=== PATIENT | male | born 1995 | race Caucasian/White ===

== ENCOUNTER → 2021-08-21 08:22 | Outpatient (CLI) | payer OTHER, SELFPAY | PROVIDERS: Visit Provider Nurse Practitioner | DX: Z20.822 Contact with and (suspected) exposure to COVID-19 (principal) | CPT/HCPCS: C9803; U0003; U0005 ==

== ENCOUNTER 2021-11-01 11:43 | Emergency (ER) | payer SELFPAY ==
[2021-11-01 12:43] VITALS: BP 134/88; PULSE 97; RESP 18; TEMP 36.6; O2SAT 98; BMI 24.4
--- NOTE | 2021-11-01 13:15 | HMH.EDUTC ---
[facility] [place] Disposition Clinical Impression: Low back pain with sciatica Qualifiers: Chronicity: unspecified Back pain laterality: right Sciatica laterality: sciatica of right side Qualified Code(s): M54.41 - Lumbago with sciatica, right side Disposition: Home, Self-Care Condition on Discharge: Good Instructions: Sciatica, DI for Sciatica, DI for Back Pain With Sciatica Additional Instructions: Get a copy of your MRI with results to bring with your to your appointment on Friday You have an appointment on Friday with Pain Management for further treatment and evaluation Return if needed Straight to ER if any life threatening symptoms Do not take the Etodolac until about 10pm tonight due to the Toradol shot Start oral steriods tomorrow Prescriptions: Etodolac 200 mg PO Q8HP PRN #20 cap PRN Reason: Moderate Pain Transmission Status: Received by [facility] #[id number] methylPREDNISolone [Medrol 4mg tab] 4 mg PO DIRECTED #21 tab Transmission Status: Received by [facility] #[id number] methocarbamoL [Methocarbamol 500mg Tablet] 500 mg PO BID PRN #15 tab PRN Reason: Muscle Spasm Transmission Status: Received by [facility] #[id number] Referrals: Dot Sahni APRN [Advanced Practice Nurse] - 11/05/21 11:00 am (Make sure to get a copy of MRI to bring with you to your appointment) Provider,Referral, [Primary Care Provider] - As needed Time of Disposition: 14:05 Medical Decision Making - Roni Inquiry Pt receiving controlled substance: No Roni was queried for this patient: No Vital Signs: 11/01/21 12:43 11/01/21 14:01 Temperature 97.9 F 97.9 F Temperature Source Oral Pulse Rate 97 H Pulse Rate [Left] 97 H Respiratory Rate 18 18 Blood Pressure 134/88 Blood Pressure [Right Arm] 134/88 Blood Pressure Mean [Right Arm] 103 02 Sat by Pulse Oximetry 98 Orders (Tests/Meds): ED MEDICATIONS Discontinued Medications Generic Name Dose Route Start Last Admin Trade Name Freq PRN Reason Stop Dose Admin Ketorolac Tromethamine 60 mg 11/01/21 13:33 11/01/21 13:51 Ketorolac 60mg/2ml Vial IM 11/01/21 13:34 60 mg ONCE ONE Administration Methylprednisolone Sodium Succinate 125 mg 11/01/21 13:33 11/01/21 13:51 Methylprednisolone Sod Succ 125mg Vial IM 11/01/21 13:34 125 mg ONCE ONE Administration [facility] [place] HPI - General Stated complaint: back/leg pain, difficulty walking Time Seen by Provider: 11/01/21 13:15 Mode of Arrival: Ambulatory Source of Information: Patient Limitations: No Limitations Description of Symptoms (Recalled from Triage Doc. by RN): pt c/o sciatic pain. pt states he had a injury in 2011 that left him with a buldging disk. pt c/o R sided lower back pain that radiates shooting pain down his R leg. HEENT Symptoms (Recalled from RN notes): No Resp Symptoms (Recalled from RN notes): No Skin Symptoms (Recalled from RN notes): No MS Symptoms (Recalled from RN notes): Yes (lower back and R leg pain) Functional Status (Recalled from RN notes): wnl - History of Present Illness Provider Complaint: Patient states that he had an old back injury from 2011 States that he recently had MRI and they seen a buldging disk States that he thinks he may have Sciatica Pain is in right side of lower back that radiates down into right buttock area States that - Related Data Previous Rx's Medication Instructions Recorded Etodolac 200 mg PO Q8HP PRN #20 cap 11/01/21 methocarbamoL [Methocarbamol 500mg 500 mg PO BID PRN #15 tab 11/01/21 Tablet] methylPREDNISolone [Medrol 4mg 4 mg PO DIRECTED #21 tab 11/01/21 tab] Allergies Allergy/AdvReac Type Severity Reaction Status Date / Time No Known Allergies Allergy Verified 11/01/21 13:33 - Worker's Comp Is this a Worker's Comp case?: No [facility] History - Hepatitis A Screen Drug use history?: No High risk sexual behaviors?: No History of sexually transmitted infection?: No Currently employed?: No [employer]
[2021-11-01 14:01] VITALS: BP 134/88; PULSE 97; RESP 18; TEMP 36.6
== END 2021-11-01 14:14 | disposition home or self-care (01) ==
PROVIDERS: Emergency Provider Nurse Practitioner
DX: M54.41 Lumbago with sciatica, right side (principal)
CPT/HCPCS: 96372; 99202; G0463

== ENCOUNTER → 2021-11-05 10:52 | Outpatient (POV) | payer SELFPAY ==
[2021-11-05 11:23] VITALS: BP 149/91; PULSE 80; RESP 18; O2SAT 99; BMI 24.4
--- NOTE | 2021-11-05 11:38 | HMH.PMCON ---
Assessment and Plan (1) Piriformis muscle pain Status: Acute Category: Medical Code(s): M79.18 - Myalgia, other site (2) Lumbar radiculopathy Status: Acute Category: Medical Code(s): M54.16 - Radiculopathy, lumbar region (3) Lumbar disc herniation Status: Acute Category: Medical Code(s): M51.26 - Other intervertebral disc displacement, lumbar region - Assessment and plan all Dx Assessment and Plan for all problems:: Patient is currently taking methocarbamol, etodolac, and methyprednisolone. Patient's MRI from November 2020 is mostly unremarkable other than the disc herniation in L5-S1. We will refer the patient to physical therapy for treatment and evaluation. We will provide the patient methocarbamol 500mg twice a day PRN for 15 days. Patient is currently transitioning from another job so he does not have any insurance at the moment. Patient can find several resources online on low back stretches. We will follow-up with the patient in one month. Patient has been instructed to contact the clinic with any concerns before the next appointment. Dr. Acosta has reviewed this note and agrees with this plan of care. This note was dictated using voice recognition software and make contain errors or omissions. HPI - Data of Consult Patient: new to practice Consult date: 11/05/21 Requesting Physician: Dot Sahni APRN - Consult Narrative Reason for consult: back pain History of present illness: Mr. Tate is a 26 year old male who comes in here today as a new patient. Patient is referred by Kalyani Maldonado APRN for acute on chronic low back pain. 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 This has caused him tremendous pain then. Patient says that he has been dealing with this low back pain that normally radiates to his left leg for years now. He had an MRI in November 2020 where they found bulging discs in the L5-S1. Central canal and bilateral neural foramina are patent. Rests of the MRI is unremarkable. Then around 2020, patient says that he started working out again, but suddenly got sharp back pain that radiates to his right leg. Patient then went to a [facility] where they gave him methocarbamol, etodolac, and methylprednisone. Patient had significant relief from these. Patient is currently not on any scheduled medications. His kanika is [id number]. CC: Dot Sahni APRN [facility] History I have reviewed the patient's past medical history: Yes *Have you ever received a pneumonia vaccine?: No *Have you received a flu vaccine this season?: No - *Social History Smoking Status: Smoker, status unknown Alcohol Intake: former *Occupational Status:: unemployed *Travel in the last 8 weeks: None Family Hx:: No significant family history Review of Systems - Review of Systems General: No recent weight changes, no fever, no sleep disturbances Respiratory: No cough, no shortness of air, no recurring pulmonary infections Cardiovascular/peripheral vascular: No chest pain, no palpitations, no edema, no shortness of breath Gastrointestinal: No new onset incontinence, normal bowel movements reported Genitourinary: No new onset incontinence Musculoskeletal: low back pain that radiates to bilateral legs, worse on the left Psychiatric: [Normal mood/affect] Neurological: [Denies weakness in extremities], [denies balance issues] Meds Home Medications Medication Instructions Recorded Confirmed Type Etodolac 200 mg PO Q8HP PRN #20 cap 11/01/21 Rx methocarbamoL [Methocarbamol 500mg 500 mg PO BID PRN #15 tab 11/01/21 Rx Tablet] methylPREDNISolone [Medrol 4mg 4 mg PO DIRECTED #21 tab 11/01/21 Rx tab] Allergies Allergy/AdvReac Type Severity Reaction Status Date / Time No Known Allergies Allergy Verified 11/01/21 13:33 Objective Vital signs: Pulse Resp BP Pulse Ox 80 18 149/91 H 99 11/05/21 11:23 11/05/21 11:23
--- NOTE | 2021-11-06 08:09 | HMH.PMCON ---
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 Patient's MRI from November 2020 is mostly unremarkable other than the disc herniation in L5-S1. We will refer the patient to physical therapy for treatment and evaluation. We will provide the patient methocarbamol 500mg twice a day PRN for 15 days. Patient is currently transitioning from another job so he does not have any insurance at the moment. Patient can find several resources online on low back stretches. We will follow-up with the patient in one month. Patient has been instructed to contact the clinic with any concerns before the next appointment. Dr. Acosta has reviewed this note and agrees with this plan of care. This note was dictated using voice recognition software and make contain errors or omissions. HPI - Data of Consult Patient: new to practice Consult date: 11/05/21 Requesting Physician: Dot Sahni APRN - Consult Narrative History of present illness: - Consult Narrative Reason for consult: back pain History of present illness: Mr. Tate is a 26 year old male who comes in here today as a new patient. Patient is referred by Kalyani Maldonado APRN for acute on chronic low back pain. 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 This has caused him tremendous pain then. Patient says that he has been dealing with this low back pain that normally radiates to his left leg for years now. He had an MRI in November 2020 where they found bulging discs in the L5-S1. Central canal and bilateral neural foramina are patent. Rests of the MRI is unremarkable. Then around 2020, patient says that he started working out again, but suddenly got sharp back pain that radiates to his right leg. Patient then went to a [facility] where they gave him methocarbamol, etodolac, and methylprednisone. Patient had significant relief from these. Patient is currently not on any scheduled medications. His kanika is [id number]. CC: Dot Sahni APRN [facility] History I have reviewed the patient's past medical history: Yes *Have you ever received a pneumonia vaccine?: No *Have you received a flu vaccine this season?: No - *Social History Smoking Status: Smoker, status unknown Alcohol Intake: former *Occupational Status:: unemployed *Travel in the last 8 weeks: None Family Hx:: No significant family history Review of Systems - Review of Systems General: No recent weight changes, no fever, no sleep disturbances Respiratory: No cough, no shortness of air, no recurring pulmonary infections Cardiovascular/peripheral vascular: No chest pain, no palpitations, no edema, no shortness of breath Gastrointestinal: No new onset incontinence, normal bowel movements reported Genitourinary: No new onset incontinence Musculoskeletal: low back pain that radiates to bilateral legs, worse on the left Psychiatric: [Normal mood/affect] Neurological: [Denies weakness in extremities], [denies balance issues] Meds Home Medications Medication Instructions Recorded Confirmed Type Etodolac 200 mg PO Q8HP PRN #20 cap 11/01/21 Rx methocarbamoL [Methocarbamol 500mg 500 mg PO BID PRN #15 tab 11/01/21 Rx Tablet] methylPREDNISolone [Medrol 4mg 4 mg PO DIRECTED #21 tab 11/01/21 Rx tab] All
== END ==
PROVIDERS: Visit Provider Clinical Nurse Specialist Family Health
DX: M79.18 Myalgia, other site (principal); M54.16 Radiculopathy, lumbar region; M51.26 Other intervertebral disc displacement, lumbar region; M47.896 Other spondylosis, lumbar region
CPT/HCPCS: 99202; G0463

== ENCOUNTER 2023-04-15 23:45 | Emergency (ER) | payer OTHER, SELFPAY ==
[2023-04-15 23:46] VITALS: BP 142/89; PULSE 109; RESP 20; TEMP 36.8; O2SAT 95; BMI 25.0
--- NOTE | 2023-04-16 00:42 | PC.NURSE ---
in room talking with patient at this time.
[2023-04-16 00:46] VITALS: BP 134/74; PULSE 91; RESP 18; TEMP 36.8; O2SAT 95
--- NOTE | 2023-04-16 00:46 | HMH.EDEXTP ---
Discharge Plan Disposition Patient Disposition: Home, Self-Care Chief Complaint: Extremity Problem,Nontraumatic Referrals Follow up/Referrals: Provider,Referral, MD [Primary Care Provider] - See instructions Clinical Impressions Clinical Impression: Contusion of forearm, right, Abrasion forearm Instructions Patient Instructions: DI for Abrasion Discharge ED Provider: Sis (ED)Ethan Extremity Problem HPI General Chief complaint: Extremity Problem,Nontraumatic Stated complaint: W/C fell right arm Time Seen by Provider: 04/16/23 00:00 Mode of Arrival: Ambulatory Source of Information: Patient and Medical Record Limitations: No Limitations Description of Symptoms (Recalled from ER Triage Doc. 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 Abrasions to right posterior forearm. History of Present Illness HPI Narrative: fall with abrasion rt forearm MD Complaint: extremity pain Onset (ago): hour(s) Consistency: constant Location: right and upper extremity Associated symptoms: denies other symptoms Related Data Allergies Allergy/AdvReac Type Severity Reaction Status Date / Time No Known Allergies Allergy Verified 11/01/21 13:33 [facility] Disclaimer: The information contained in this section may have been updated after the patient was seen, as this information can be updated by other users. Social History Smoking Status: Never smoker alcohol intake: former current occupational status: unemployed Travel in the last 8 weeks: None ROS Obtained: Yes All systems reviewed & no additional complaints except as documented Physical Exam General General appearance: alert Head Head exam: normocephalic Eye Eye exam: Present PERRL and EOMI ENT ENT exam: Present mucous membranes moist Neck Neck exam: Present trachea midline Respiratory Respiratory exam: Absent respiratory distress Cardiovascular Cardiovascular exam: Present regular rate Extremities Exam Extremities exam: Present other (abrasions rt upper ext with intact rom ) Neurological Exam Neurological exam: Present alert, oriented X3 and CN II-XII intact Skin Skin exam: Present other (rt upper ext abrasions); Absent rash Medical Decision Making Medical Records Medical records reviewed: Yes I reviewed the patient's medical records. Roni Inquiry Pt receiving controlled substance: No Vital Signs: 04/15/23 23:46 Temperature 98.2 F Temperature Source Oral Pulse Rate [Left] 109 H Respiratory Rate 20 Blood Pressure [Left Arm] 142/89 H Blood Pressure Mean [Left Arm] 106 Blood Pressure Source [Left Arm] Automatic Cuff Blood Pressure Position [Left Arm] Sitting 02 Sat by Pulse Oximetry 95 Oxygen Delivery Method Room Air Medical Decision Narrative: workman comp form completed -abrasion rt forearm Critical Care Time Critical Care Time Critical Care Time: No Attestation: On 04/15/23, the high probability of a clinically significant, sudden or life threatening deterioration of the following system(s) required my full and direct attention, intervention and personal management. The time I documented below is in addition to time spent performing reported procedures but includes the following listed in this critical care notation.
== END 2023-04-16 00:54 | disposition home or self-care (01) ==
PROVIDERS: Emergency Provider Emergency Medicine
DX: S50.811A Abrasion of right forearm, initial encounter (principal); W19.XXXA Unspecified fall, initial encounter; Y35.91XA Legal intervention, means unspecified, law enforcement official injured, initial encounter
CPT/HCPCS: 99282; 99283

== ENCOUNTER 2023-04-19 03:55 | Emergency (ER) | payer OTHER, SELFPAY ==
[2023-04-19 04:05] VITALS: BP 131/92; PULSE 64; RESP 16; TEMP 37.2; O2SAT 98; BMI 25.0
[2023-04-19 06:00] VITALS: BP 122/83; PULSE 64; RESP 18; TEMP 36.7
--- NOTE | 2023-04-19 06:08 | HMH.EDLOEX ---
Discharge Plan Disposition Patient Disposition: Home, Self-Care Prescriptions Prescriptions: New meloxicam 15 mg tablet 15 mg PO DAILY Qty: 10 0RF Referrals Follow up/Referrals: Provider,Referral, [Primary Care Provider] - See instructions Clinical Impressions Clinical Impression: Injury of quadriceps muscle Instructions Patient Instructions: DI for Quadriceps Strain Discharge ED Provider: Sis (ED)Ethan Lower Extremity Injury HPI General Chief Complaint: Extremity Injury, Lower Stated Complaint: WC Injury left quad Time Seen by Provider: 04/19/23 06:00 Mode of Arrival: Ambulatory Source of Information: Patient and Medical Record Limitations: No Limitations Description of Symptoms (Recalled from ER Triage Doc. by RN): Patient arrives via private vehicle c c/o left quadracep muscle. 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 Patient states that the pain in his thigh is now making it difficult to bend his leg. History of Present Illness HPI Narrative: tender lt quad after pursuing suspect lawrence DURAN complaint: thigh injury Onset (ago): hour(s) Injury: Left: thigh Type of Injury: other (running ) Place: work Severity: moderate Exacerbating factors: movement and palpation Other symptoms: none Related Data Previous Rx's Medication Instructions Recorded meloxicam 15 mg tablet 15 mg PO DAILY #10 tabs 04/19/23 Allergies Allergy/AdvReac Type Severity Reaction Status Date / Time No Known Allergies Allergy Verified 11/01/21 13:33 [facility] Disclaimer: The information contained in this section may have been updated after the patient was seen, as this information can be updated by other users. Social History Smoking Status: Never smoker alcohol intake: former current occupational status: unemployed Travel in the last 8 weeks: None ROS Obtained: Yes All systems reviewed & no additional complaints except as documented Physical Exam General General appearance: alert Head Head exam: normocephalic Eye Eye exam: Present PERRL and EOMI ENT ENT exam: Present mucous membranes moist Neck Neck exam: Present trachea midline Respiratory Respiratory exam: Absent respiratory distress Cardiovascular Cardiovascular exam: Present regular rate Abdominal Exam Abdominal exam: Present soft Extremities Exam Extremities exam: Present other (tenderness lt ant thigh ) Neurological Exam Neurological exam: Present alert and CN II-XII intact; Absent motor sensory deficit Skin Skin exam: Absent rash Medical Decision Making Medical Records Medical records reviewed: Yes I reviewed the patient's medical records. Roni Inquiry Pt receiving controlled substance: No Vital Signs: 04/19/23 04:05 04/19/23 06:00 Temperature 99 F 98.1 F Temperature Source Oral Pulse Rate 64 Pulse Rate [Apical] 64 Respiratory Rate 16 18 Blood Pressure 122/83 Blood Pressure [Right Arm] 131/92 H Blood Pressure Mean [Right Arm] 105 Blood Pressure Source [Right Arm] Automatic Cuff Blood Pressure Position [Right Arm] Sitting 02 Sat by Pulse Oximetry 98 Oxygen Delivery Method Room Air Lab Data Lab results reviewed: Yes I reviewed the patient's lab results. Orders (Tests/Meds): ED MEDICATIONS Discontinued Medications Generic Name Dose Route Start Last Admin Trade Name Freq PRN Reason Stop Dose Admin Ketorolac Tromethamine 60 mg 04/19/23 04:16 04/19/23 04:25 Ketorolac 60mg/2ml Vial IM 04/19/23 04:17 60 mg ONCE ONE Administration Methylprednisolone Sodium Succinate 125 mg 04/19/23 04:16 04/19/23 04:26 Methylprednisolone Sod Succ 125mg Vial IV 04/19/23 04:17 125 mg ONCE ONE Administration Medical Decision Narrative: tender lt thigh consistent with mm injury Critical Care Time Critical Care Time Critical Care Time: No Attestation: On 04/19/23, the
== END 2023-04-19 06:17 | disposition home or self-care (01) ==
PROVIDERS: Emergency Provider Emergency Medicine
DX: S76.102A Unspecified injury of left quadriceps muscle, fascia and tendon, initial encounter (principal); Y93.02 Activity, running; Y35.91XA Legal intervention, means unspecified, law enforcement official injured, initial encounter
CPT/HCPCS: 96372; 96374; 99284

== ENCOUNTER 2023-06-01 02:31 | Emergency (ER) | payer OTHER, SELFPAY ==
[2023-06-01 02:40] VITALS: BP 124/84; PULSE 99; RESP 16; O2SAT 95; BMI 25.0
--- NOTE | 2023-06-01 02:50 | HMH.EDGENADL ---
Discharge Plan Disposition Patient Disposition: Home, Self-Care Condition: Good Prescriptions Prescriptions: No Action meloxicam 15 mg tablet 15 mg PO DAILY Qty: 10 0RF Activity Restrictions/Add. Instructions Additional Instructions/Restrictions: Please follow-up with your primary care provider. Please return to the emergency department if you develop any new or worsening symptoms or become concerned for your health. Please take Tylenol and ibuprofen as needed for pain. Please limit physical activity of the left lower extremity until symptoms improve. Please take Tylenol and ibuprofen as needed for pain. Please use rest, ice, elevation for symptom control. Clinical Impressions Clinical Impression: Strain of left quadriceps muscle Discharge ED Provider: Justen Liu General Adult HPI General Chief complaint: Extremity Injury, Lower Stated complaint: WC 06/01/23 0230 Injury left quad Time Seen by Provider: 06/01/23 02:40 Mode of Arrival: Ambulatory Source of Information: Patient Limitations: No Limitations Description of Symptoms (Recalled from ER Triage Doc. 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 pt c/o L upper thigh pain. pt states this has happened previously. pain is dull and achey at rest and sharp with movement. pain is a 6/10 History of Present Illness HPI narrative: 28-year-old male reportedly previously healthy presents with left quadriceps pain after injury while chasing down a suspect. 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 He reports that he strained his quadriceps muscle about a month ago, symptoms were improving but were exacerbated by the incident today. He reports that he tackled the suspected of the ground and had significant left anterior thigh pain thereafter. Patient is able to bear weight, straight leg raise intact. Pain is reproducible on exam with palpation of the quadriceps muscle. Related Data Previous Rx's Medication Instructions Recorded meloxicam 15 mg tablet 15 mg PO DAILY #10 tabs 04/19/23 Allergies Allergy/AdvReac Type Severity Reaction Status Date / Time No Known Allergies Allergy Verified 11/01/21 13:33 [facility] Disclaimer: The information contained in this section may have been updated after the patient was seen, as this information can be updated by other users. Social History Smoking Status: Never smoker alcohol intake: former current occupational status: unemployed Travel in the last 8 weeks: None ROS Obtained: Yes All systems reviewed & no additional complaints except as documented Physical Exam General General appearance: alert and in no apparent distress Head Head exam: atraumatic and normocephalic Eye Eye exam: Present normal appearance, PERRL and EOMI ENT ENT exam: Present normal oropharynx and normal external ear exam Neck Neck exam: Present normal inspection and full ROM Chest Chest inspection: Present normal inspection and symmetric chest wall rise; Absent tenderness Respiratory Respiratory exam: Present normal lung sounds bilaterally; Absent respiratory distress Cardiovascular Cardiovascular exam: Present regular rate and normal rhythm Abdominal Exam Abdominal exam: Present soft; Absent distention, tenderness or guarding Extremities Exam Extremities exam: Present normal inspection and other (Tenderness palpation of the left anterior thigh. Left knee without effusion or tenderness, no pain with range of motion of the knee, slight pain of the quadriceps muscle with straight leg raise, straight leg raise intact); Absent edema or joint swelling Back Exam Back exam: Present normal inspection; Absent tenderness Neurological Exam Neurological exam: Present alert and oriented X3; Absent motor sensory deficit Psychiatric Psychiatric exam: Present normal affect and normal mood Skin Skin exam: Present warm, dry and normal color Lymphatic Lymphatic Findings: no adenopathy Medical Decision Making Medical Rec
[2023-06-01 02:52] VITALS: BP 130/70; PULSE 77; RESP 19; TEMP 36.8; O2SAT 98
== END 2023-06-01 02:55 | disposition home or self-care (01) ==
LOC: ER 02:50
PROVIDERS: Emergency Provider Emergency Medicine
DX: S76.112A Strain of left quadriceps muscle, fascia and tendon, initial encounter (principal); Y35.811A Legal intervention involving manhandling, law enforcement official injured, initial encounter
CPT/HCPCS: 99283

== ENCOUNTER 2023-12-16 17:51 | Emergency (ER) | payer BC, SELFPAY ==
[2023-12-16 19:00] VITALS: BP 136/90; PULSE 71; RESP 19; TEMP 36.8; O2SAT 98; BMI 25.8
--- NOTE | 2023-12-16 19:14 | EXP.UTC ---
Discharge Plan Disposition Patient Disposition: Home, Self-Care Condition: Good Prescriptions Prescriptions: New methylprednisolone [Medrol (Lupillo)] 4 mg tablets,dose pack See Rx Instructions .Route .COMPLEX 6 Days Qty: 21 0RF Rx Instructions: taper pack; methocarbamol 500 mg tablet 500 mg PO TID Qty: 12 0RF etodolac 200 mg capsule 200 mg PO Q8H PRN (Reason: pain) Qty: 12 0RF Referrals Follow up/Referrals: Provider,Referral, MD [Primary Care Provider] - See instructions Activity Restrictions/Add. Instructions Additional Instructions/Restrictions: *Etodolac loan 8 hours with meal as needed for pain/inflammation *Remember you had a Toradol shot in the clinic today, which is similar to Motrin or anything for the next 10hrs *Not additional anti-inflammatory like Ibuprofin motrin, aleve, advil with the above amount of Etodolac You can still take Tylenol every 4 hours as needed if you need something else for pain *Muscle relaxer every 8 hours as needed for muscle spasms but remember, it WILL cause drowsiness You cannot take it and drive, operate machinery or care for small children. *Keep this area active, no movement leads to more stiffness, However take it easy and avoid heavy lifting pushing or pulling *Follow up with you family doctor if no improvement for further treatment Clinical Impressions Clinical Impression: Low back pain with sciatica Qualifiers: Chronicity: unspecified Back pain laterality: right Sciatica laterality: sciatica of right side Qualified Code(s): M54.41 - Lumbago with sciatica, right side Instructions Patient Instructions: DI for Sciatica, DI for Back Pain With Sciatica Discharge ED Provider: Kalyani Maldonado [facility] General Stated complaint: back pain Mode of Arrival: Ambulatory Source of Information: Patient Limitations: No Limitations Time Seen by Provider: 12/16/23 19:14 Description of Symptoms (Recalled from Triage Doc. by RN): PATIENT C/O TIGHTNESS IN RIGHT BUTTOCK WITH TINGLING THAT RADIATES DOWN RIGHT LEG X 1 WEEK HEENT Symptoms (Recalled from RN notes): No Resp Symptoms (Recalled from RN notes): No Skin Symptoms (Recalled from RN notes): No MS Symptoms (Recalled from RN notes): Yes Functional Status (Recalled from RN notes): WNL History of Present Illness Provider Complaint: Patient states that he has a hx of sciatica pain States he started about a week ago in his right buttock area that goes down into his right upper leg that hurts worse when he sits or lays on it States feels like it did last time he had sciatica and came in and got a couple shots for it Related Data Previous Rx's Medication Instructions Recorded etodolac 200 mg capsule 200 mg PO Q8H PRN pain #12 caps 12/16/23 methocarbamol 500 mg tablet 500 mg PO TID #12 tabs 12/16/23 methylprednisolone 4 mg tablets in See Rx Instructions .Route 12/16/23 a dose pack (Medrol (Lupillo)) .COMPLEX 6 days #21 tabs Allergies Allergy/AdvReac Type Severity Reaction Status Date / Time No Known Allergies Allergy Verified 11/01/21 13:33 Worker's Comp Is this a Worker's Comp case?: No [facility] Disclaimer: The information contained in this section may have been updated after the patient was seen, as this information can be updated by other users. Medical History (Updated 12/16/23 @ 19:26 by Kalyain Maldonado APRN) No significant past medical history Social History Smoking Status: Never smoker alcohol intake: former current occupational status: unemployed Travel in the last 8 weeks: None ROS Obtained: Yes All systems reviewed & no additional complaints except as documented and Yes Systems reviewed as appropriate & no additional complaints except as documented Constitutional Constitutional: Reports system reviewed and no additional complaints, except as documented and Reports as per HPI ENT Ears, Nose, Mouth, and Throat: Reports system reviewed and no additional complaints, except as documented and Reports as per HPI Cardiovascular Cardiovascular: Reports system reviewed and no additional complaints, except as documented and Reports as per HPI Gastrointestinal Gastrointestingal: Reports system reviewed and no additional complaints, except as documented and as per HPI Musculoskeletal Musculoskeletal: Reports system reviewed and no additional complaints, except as documented, Reports as per HPI and Reports other (pain in right buttock area going down into right upper leg) Physical Exam General General appearance: alert and in no apparent distress ENT ENT exam: Present mucous membranes moist Respiratory Respiratory exam: Present normal lung sounds bilaterally; Absent respiratory distress or wheezes Cardiovascular Cardiovascular exam: Present regular rate, normal rhythm and normal heart sounds Abdominal Exam Abdominal exam: Present soft and normal bowel sounds; Absent distention or tenderness Back Exam Back exam: Present tenderness and sciatic notch tenderness (R) Back 1 view image: 1. pain in right buttock area that radiates down into right upper leg worse with movement or sitting on that side hx of sciatica Denies numbness Denies known injury denies loss of control of bowel or bladder Neurological Exam Neurological exam: Present alert, oriented X3 and normal gait Medical Decision Making Roni Inquiry Pt receiving controlled substance: No Roni was queried for this patient: No Vital Signs: 12/16/23 19:00 Temperature 98.3 F Temperature Source Oral Pulse Rate [Left Brachial] 71 Respiratory Rate 19 Blood Pressure [Left Arm] 136/90 Blood Pressure Mean [Left Arm] 105 Blood Pressure Source [Left Arm] Automatic Cuff Blood Pressure Position [Left Arm] Sitting 02 Sat by Pulse Oximetry 98 Oxygen Delivery Method Room Air
[2023-12-16] MEDS: METHYLPREDNISOLONE SOD SUCC 125MG VIAL 125 MG IM (19:29)
[2023-12-16] MEDS: KETOROLAC 60MG/2ML VIAL 60 MG IM (19:29)
[2023-12-16 19:30] VITALS: BP 136/90; PULSE 71; RESP 19; TEMP 36.8; O2SAT 98
== END 2023-12-16 19:45 | disposition home or self-care (01) ==
PROVIDERS: Emergency Provider Nurse Practitioner
DX: M54.41 Lumbago with sciatica, right side (principal)
CPT/HCPCS: 96372; 99212; 99214; G0463

== ENCOUNTER 2024-03-24 16:00 | Outpatient (RCR) | payer BC, SELFPAY ==
--- NOTE | 2024-02-04 13:51 | HMH.PTOPEV ---
PT Outpatient Evaluation Rehab PT Outpatient Evaluation Start: 02/04/24 11:00 Freq: Status: Active Protocol: Document 02/04/24 11:00 ZAN (Rec: 02/04/24 13:51 ZAN [id number]) E-signed By Tracee Mai, PT Outpatient Therapy Subjective History Subjective History Pt is a 28 y/o male who reports acute on chronic low back pain with insidious onset in December. Pt reports he initially injured his low back while deadlifting in high school resulting in a buldging disc. Pt reports frequent flare ups of low back pain since with history of piriformis syndrome and sciatica diagnoses. Pt reports current symptoms of right sided low-back pain that refers into the right posterior hip. Pt denies LE symptoms, paresthesia or b/b dysfunction. Pt reports he started doing low back extension exercises at the gym to try to assist with onset of pain but this seemed to worsen it. Pt reports he went to the ED on 12/16 and received a lumbar injection which did not help much. Pt denies having recent imaging of the back. Pt also states he was prescribed Meloxicam, a muscle relaxer and a steroid pack. Pt states he has not seen much improvement in symptoms while taking these medications. Pt reports he has been going to the chiropractor 2x/week which provides temporary relief. Pt reports pain is aggravated by bending, laying on the right side, and prolonged sitting/ standing/walking. Pt also reports he notices pain with initial movements with the leg press, leg raises, and hamstring curls. Pt reports he is very active and goes to the gym 3-4x/week but has recently quit squatting and deadlifting due to LBP. Pt denies further comorbidities to report. 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 Chief Complaint Pain Symptom Type Ache,Throb,Sharp Symptoms Relieved By Rest/Positioning Symptoms Aggravated By Sitting,Standing,Bending/ Stooping,Physical Activity, Walking,Lifting Prior Functional Limitations None Current Functional Limitations Lifting,Driving,Sleeping, Standing,Sitting Symptom Description Constant but Variable Level of pain today (0-10) 1 Pain scale - at its best (0-10) 1 Pain scale - at its worst (0-10) 5 Lumbopelvic Eval Palapation tenderness bilateral lumbar spinal tenderness Yes: L3-L5, S1 buttock tenderness Yes: R piriformis , glute med/ min Lumbar/Sacral Palpation Findings Tenderness Lumbar/Sacral Palpation Overall Comment referred pain into R hip with CPA of L4-5 Accessory Movement L-spine Vertebrae Accessory Movements Central P/A [place] that Elicit Symptoms L3 right L4 right L5 right S1 right Range of Motion Lumbar Spine Active Flexion Range of 60 Motion (degrees) Lumbar Spine Active Extension Range of 26 Motion (degrees) Left Lumbar Spine Lateral Flexion Active 30 Range of Motion (degrees) Right Lumbar Spine Lateral Flexion 30 Active Range of Motion (degrees) Manual Muscle Test Bilateral Knee Extension Strength Grade 5 Normal Knee Flexion Strength Grade 5 Normal Hip Flexion Strength Grade 5 Normal Hip Abduction Strength Grade 4 Good Hip Adduction Strength Grade 5 Normal Hip External Rotation Strength Grade 4 Good Hip Extension Strength Grade 4 Good Ankle Dorsiflexion Strength Grade 5 Normal DTR Rt Patellar 2+ Lt Patellar 2+ Altered Sensation Bilateral Comment equal and intact to light touch sensation bilaterally Special Tests Hip Scouring (Quadrant) Test Negative Left,Negative Right Hip Jose D (GRACIELA) Test Negative Left,Negative Right Hip Piriformis Test Positive Right Sciatic Nerve Tension Test Negative Left,Negative Right Unilateral Straight Leg Raise (Lasegue) Negative Left,Negative Right Test Oswestry Index Section 1 Pain Intensity The pain comes and goes and is moderate Section 2 Personal Care (Washing,Dresing) change my way of washing or dressing in order to avoid pain Section 3 Lifting I can lift heavy weights, but it gives me extra pain Section 4 Walking I cannot walk more than one mile wihtout increasing pain Section 5 Sitting I can sit in my favorite chair for as long as I like Section 6 Standing I cannot stand more than 1/2 hour without increasing pain Section 7 Sleeping I get pain in bed, but it does not prevent me from sleeping well Section 8 Social Life My social life is normal but increases the degree of pain Section 9 Traveling I get some pain when traveling , but none of my usual forms of travel m Section 10 Changing Degreee of Pain My pain seems to be getting better, but improvement is slow Score and Risk Level Oswestry Sc 14 Oswestry Risk Level Mild Disability Outpatient Therapy Assessment Impairments Problems/Impairmments Palpation Tenderness,Impaired Range of Motion,Impaired Strength,Impaired Walking, Impaired Standing,Impaired Sitting,Impaired Lifting, Impaired Squatting,Impaired Bending,Impaired Recreational Activities,Impaired Work Activities,Subjective C/O Pain ,Impaired Self Care/Self Management Prognosis Rehab Potential Good Clinical Impression Consistent with Diagnosis Yes Consistent with LBP with referred pain Short Term Goals Number of Weeks 3 Increase Range of Motion Yes: Improve lumbar AROM flex to 70 Increase Strength Yes: Improve core strength to 4/5 to assist with function Improve Ability to Squat Yes: demonstrate proper mechanics to assist with ADLs/ work/gym Improve Self Care/Self Management Yes Patient to be Ind w/ HEP Yes Checkering Machine Adjuster Goals Number of Weeks 6 Increase Range of Motion Yes: Improve lumbar AROM flex to at least 80 Increase Strength Yes: Improve core/hip strength 4+-5/5 grossly to assist with function Restore Ability to Lift Objects to Waist Yes: demonstrate proper Level deadlift mechanics with 100# to assist with function/rec Return to Recreational Activities Yes Improve Oswestry Score Yes: Improve score to 10 or less to improve overall QOL Decrease Subjective C/O Pain Yes: Improve pain at worst to 2/10 or less to improve overall QOL Outpatient Therapy Plan of Care Treatment Plan May Include Therapeutic Exercise Including Home Yes Exercise Program Manual Therapy Techniques Yes Neuromuscular Re-education Yes Therapeutic Activities to Return to Yes Previous Functional/Work Level ADL/Self Care Education Yes Mechanical Traction Yes Dry Needling Yes Thermal Modalities Yes Electrical Stimulation Yes Ultrasound/Phonophoresis Yes Iontophoresis Yes Massage Yes Eval/Re-Eval Yes Frequency Times per week 2 Duration Number of Weeks 4-6 Addendums This patient is a candidate for social No or vocational rehab? Patient/Guardian verbally acknowledges Yes understanding of treatment program and consents to further treatment? Patient/Guardian verbally acknowledges Yes understanding of diagnosis, prognosis and goals for treatment? Eval Complexity PT Charges 39565 - Low Complexity Shoulder/Elbow Eval Shoulder Objective Measurements Elbow Objective Measurements PHYSICIAN CERTIFICATION: I certify the specified therapy services for Tomás Tate are required, authorized, and reviewed every 30 days.
--- NOTE | 2024-03-09 12:10 | HMH.RHREAS ---
Rehab Reassessment Rehab OP Re-assessment Start: 02/04/24 11:00 Freq: Status: Active Protocol: Document 03/09/24 10:58 STEFEun (Rec: 03/09/24 12:10 ZAN [id number]) E-signed By Tracee Mai, PT Oswestry Index Section 1 Pain Intensity The pain comes and goes and is moderate Section 2 Personal Care (Washing,Dresing) change my way of washing or dressing in order to avoid pain Section 3 Lifting I can lift heavy weights, but it gives me extra pain Section 4 Walking I have no pain when walking Section 5 Sitting Pain prevents me from sitting for more than one hour Section 6 Standing I cannot stand more than 1 hour without increasing pain Section 7 Sleeping I get pain in bed, but it does not prevent me from sleeping well Section 8 Social Life My social life is normal but increases the degree of pain Section 9 Traveling I get extra pain while traveling, but it does not compel me to seek al Section 10 Changing Degreee of Pain My pain fluctuates, but overall is definitely getting better Score and Risk Level Oswestry Sc 12 Oswestry Risk Level Mild Disability Rehab Re-assessment Subjective Subjective Pt reports he feels 80% improved since starting PT. Pt reports continued right deep gluteal pain rated 2/10 at worst within the past week. Pt reports pain is mostly aggravated by prolonged sitting, performing leg press/ bridges and walking on uneven terrain. Pt also reports he notices avoiding bending towards the right side to avoid exacerbating symptoms. 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 Objective Objective Notes Palpation: 1/4 TTP of L5-S1 and greater trochanter Lumbar AROM: 75 flex, ext 20, LLF 30, RLF 35 RLE strength: hip ext 4/5, hip abd 4+/5, knee flex 5/5, knee ext 5/5 Core strength: 4-/5 Assessment Progress Assessment Progressing as Expected Assessment Notes Pt has attended 5 PT sessions consisting of aerobic exercise , glute/core strengthening, LE stretching, motor control, manual therapy and modalities with good tolerance. Pt demonstrated improved pain severity, KELLY score, lumbar AROM and hip strength this date compared to the initial evaluation. Pt continues to demonstrate deficits in core/ hip extensor strength and fear -avoidance behavior with lifting/bending. Pt educated on importance of compliance with PT POC and HEP to assist with progress. Overall, the pt would continue to benefit from skilled PT to further improve pain severity, hip/ core strength, lifting mechanics and functional activity tolerance to assist with return to PLOF. Patient goals met ST/5 Goals Not Met core strength, HEP compliance, LTG Revised Goals n/a Plan Plan Continue inital POC Frequency of Therapy 2x/week Duration of therapy 4 more weeks Time and Billing Re-Eval Time 15 Re-Eval Billing Units 1 PHYSICIAN CERTIFICATION: I certify the specified therapy services for Tomás Tate are required, authorized, and reviewed every 30 days.
== END 2024-03-24 17:10 | disposition home or self-care (01) ==
LOC: PT 16:00
PROVIDERS: Visit Provider Family Medicine
DX: M54.41 Lumbago with sciatica, right side (principal); M47.816 Spondylosis without myelopathy or radiculopathy, lumbar region
CPT/HCPCS: 20560; 20561; 97010; 97014; 97110; 97112; 97140; 97163; 97164; 97530; G0283

== ENCOUNTER 2024-05-16 14:22 | Emergency (ER) | payer BC, SELFPAY ==
--- NOTE | 2024-05-16 14:29 | EXP.UTC ---
Discharge Plan Disposition Patient Disposition: Home, Self-Care Condition: Good Prescriptions Prescriptions: New triamcinolone acetonide 0.1 % cream 1 applic topical BID PRN (Reason: itching) Qty: 30 0RF cephalexin 500 mg capsule 500 mg PO QID Qty: 40 0RF mupirocin 2 % ointment 1 applic topical TID 7 Days Qty: 15 0RF Referrals Follow up/Referrals: Vini Crow MD [Primary Care Provider] - See instructions Activity Restrictions/Add. Instructions Additional Instructions/Restrictions: Keep the wounds clean and dry. Follow up with your regular doctor. GO TO THE ER FOR ANY WORSENING SYMPTOMS OR CONCERNS. Clinical Impressions Clinical Impression: Bullous impetigo Instructions Patient Instructions: DI for Impetigo Discharge ED Provider: Elder England [facility] General Stated complaint: rash all over body Time Seen by Provider: 05/16/24 14:29 History of Present Illness Provider Complaint: He states that he has had multiple crusted lesions that have developed on his left leg and right upper arm. Related Data Previous Rx's Medication Instructions Recorded cephalexin 500 mg capsule 500 mg PO QID #40 caps 05/16/24 mupirocin 2 % topical ointment 1 applic topical TID 7 days #15 05/16/24 grams triamcinolone acetonide 0.1 % 1 applic topical BID PRN itching 05/16/24 topical cream #30 grams Allergies Allergy/AdvReac Type Severity Reaction Status Date / Time No Known Allergies Allergy Verified 01/22/24 15:14 [facility] Disclaimer: The information contained in this section may have been updated after the patient was seen, as this information can be updated by other users. Medical History (Updated 05/16/24 @ 15:02 by Elder England APRN) Degenerative joint disease (DJD) of lumbar spine Lumbar disc herniation Lumbar radiculopathy Low back pain with sciatica Social History Smoking Status: Never smoker alcohol intake: former current occupational status: unemployed Travel in the last 8 weeks: None ROS Obtained: Yes All systems reviewed & no additional complaints except as documented Constitutional Constitutional: Denies chills and Denies fever(s) Eyes Eyes: Denies eye discharge ENT Ears, Nose, Mouth, and Throat: Denies dizziness, Denies otalgia and Denies sore throat Cardiovascular Cardiovascular: Denies chest pain Respiratory Respiratory: Denies shortness of breath, Denies chest congestion, Denies cough, Denies stridor and Denies wheezing Gastrointestinal Gastrointestingal: Denies nausea or vomiting Musculoskeletal Musculoskeletal: Reports system reviewed and no additional complaints, except as documented and Denies arthralgias Integumentary/Breasts Skin/Breast: Reports as per HPI Neurologic Neurologic: Denies dizziness and Denies paresthesias Allergic/Immunologic Allergic/Immunologic: Denies wheezing Physical Exam General General appearance: alert and in no apparent distress Head Head exam: atraumatic, normocephalic and normal inspection Eye Eye exam: Present normal appearance, PERRL and EOMI ENT ENT exam: Present normal exam, normal oropharynx, mucous membranes moist, TM's normal bilaterally and normal external ear exam Neck Neck exam: Present normal inspection, full ROM and trachea midline; Absent meningismus or lymphadenopathy Chest Chest inspection: Present normal inspection and symmetric chest wall rise; Absent tenderness Respiratory Respiratory exam: Present normal lung sounds bilaterally; Absent respiratory distress Cardiovascular Cardiovascular exam: Present regular rate and normal rhythm; Absent JVD Abdominal Exam Abdominal exam: Present soft and normal bowel sounds; Absent distention, tenderness or guarding Extremities Exam Extremities exam: Present normal inspection, full ROM and normal capillary refill; Absent calf tenderness Back Exam Back exam: Present normal inspection; Absent tenderness Neurological Exam Neurological exam: Present alert and oriented X3 Psychiatric Psychiatric exam: Present normal affect and normal mood Skin Skin exam: Present rash Lymphatic Lymphatic Findings: no adenopathy Medical Decision Making Medical Records Medical records reviewed: No I reviewed the patient's medical records. Roni Inquiry Pt receiving controlled substance: No
[2024-05-16 14:36] VITALS: BP 117/74; PULSE 92; RESP 18; TEMP 36.6; O2SAT 96; BMI 26.9
[2024-05-16 15:13] VITALS: BP 117/74; PULSE 92; RESP 18; TEMP 36.6; O2SAT 96
== END 2024-05-16 15:13 | disposition home or self-care (01) ==
PROVIDERS: Emergency Provider Nurse Practitioner Family; PCP Family Medicine
DX: L01.03 Bullous impetigo (principal)
CPT/HCPCS: 99212; 99214; G0463

== ENCOUNTER 2024-08-29 21:34 | Emergency (ER) | payer SELFPAY ==
[2024-08-29 21:34] VITALS: BP 140/98; PULSE 115; RESP 18; TEMP 36.8; O2SAT 99; BMI 37.0
[2024-08-29 21:39] VITALS: BMI 27.1
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
[2024-08-29 21:43] VITALS: BP 140/98; PULSE 111; O2SAT 95
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
[2024-08-29 22:00] VITALS: BP 133/90; PULSE 103; O2SAT 98
[2024-08-29 22:08] LABS: Chloride 105 mmol/L (98-107); Sodium 141 mmol/L (136-145)
[2024-08-29 22:09] LABS: Activated Partial Thrombo Time 24.1 seconds (22.8-30.6); INR 0.95 (0.9-1.1); Prothrombin Time 10.7 seconds (10.1-12.5)
[2024-08-29 22:10] LABS: Blood Urea Nitrogen 18 mg/dl (9-20); Creatinine Clearance Estimated 99 mL/min (50-200); Estimated Glomerular Filt Rate 60 ml/min (>60); GFR (African American) 72 ML/MIN (>60)
[2024-08-29 22:11] LABS: Alanine Aminotransferase 33 U/L (12-78); Albumin/Globulin Ratio 1.6 (1.1-1.8); Alkaline Phosphatase 54 U/L (38-126); Aspartate Amino Transferase 33 U/L (17-59); Basophils # 0.1 K/mm3 (0-0.2); Basophils % 1.4 % (0.1-2.0); Bilirubin,Total 0.7 mg/dl (0.2-1.3); Calcium 9.4 mg/dl (8.4-10.2); Carbon Dioxide 29 mmol/L (22.0-30.0); Eosinophils # 0.4 K/mm3 (0.0-0.4); Eosinophils % 5.7 % (0.1-12.0); Globulin 3.2 g/dL (1.3-3.2); Glucose 105 mg/dl (74-100); Hematocrit 44.6 % (42.0-52.0); Hemoglobin 15.5 g/dL (14.1-18.0); Lymphocytes # 1.7 K/mm3 (0.7-4.5); Lymphocytes % 26.3 % (10-50); Mean Corpuscular HGB Conc 34.7 g/dL (31.8-35.4); Mean Corpuscular Hemoglobin 30.7 pg (27.0-31.2); Mean Corpuscular Volume 88.5 fl (80-94); Mean Platelet Volume 6.9 fl (7.4-10.4); Monocytes # 0.6 K/mm3 (0.1-1.0); Monocytes % 8.6 % (1.7-9.3); Neutrophils # 3.7 K/mm3 (1.8-7.8); Neutrophils % 58.1 % (37.0-80.0); Platelet Count 345 K/mm3 (142-424); Red Blood Count 5.04 M/mm3 (4.60-6.20); Red Cell Distribution Width 12.7 % (11.5-17.5); Total Protein,Serum 8.2 g/dl (6.3-8.2); White Blood Count 6.4 K/mm3 (4.8-10.8)
[2024-08-29] MEDS: SODIUM CHLORIDE 0.9% 10ML FLUSH SYRINGE 10 ML IV (22:35)
[2024-08-29] MEDS: SODIUM CHLORIDE 0.9% 10ML SYR (RAD ONLY) 10 ML IV (22:35)
[2024-08-29] MEDS: IOPAMIDOL-370 (76%);100ML BOTTLE 80 ML IV (22:35)
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
[2024-08-29 22:46] VITALS: BP 145/94; PULSE 93; O2SAT 99
[2024-08-29 23:00] VITALS: BP 142/93; PULSE 98; O2SAT 99
[2024-08-29 23:28] VITALS: BP 142/93; PULSE 98; RESP 18; TEMP 36.8; O2SAT 99
[2024-08-30 00:02] LABS: Barbiturates Screen,Urine Negative ng/ml (<200)
[2024-08-30 00:03] LABS: Benzodiazepines Screen,Urine Negative ng/ml (<200)
[2024-08-30 00:04] LABS: Amphetamine/Metha Screen,Urine Negative ng/ml (<1000); Cannabinoid Screen,Urine Negative ng/ml (<50)
[2024-08-30 00:05] LABS: Cocaine Screen,Urine Negative ng/ml (<300)
[2024-08-30 00:06] LABS: Methadone Screen,Urine Negative ng/ml (<300); Opiate Screen,Urine Negative ng/ml (<300)
[2024-08-30 00:07] LABS: Phencyclidine Screen,Urine Negative ng/ml (<25)
[2024-08-30 00:22] LABS: HIV (1&2) Antibody Rapid NONREACTIVE (NONREACTIVE)
[2024-08-31 08:19] LABS: HCV Ab Non Reactive (Non Reactive)
== END 2024-08-29 23:43 | disposition home or self-care (01) ==
PROVIDERS: Emergency Provider Emergency Medicine
DX: S00.81XA Abrasion of other part of head, initial encounter (principal); S60.811A Abrasion of right wrist, initial encounter; M25.531 Pain in right wrist; V89.2XXA Person injured in unspecified motor-vehicle accident, traffic, initial encounter; Y93.89 Activity, other specified; Y92.89 Other specified places as the place of occurrence of the external cause
CPT/HCPCS: 70450; 71045; 71275; 72125; 72128; 72131; 74174; 80053; 80307; 85025; 85610; 85730; 86803; 87389; 99285; Q9967

== ENCOUNTER 2024-12-01 15:00 | Outpatient (RCR) | payer BC, SELFPAY ==
--- NOTE | 2024-11-04 20:11 | [facility].PTOPEV ---
PT Outpatient Evaluation Rehab PT Outpatient Evaluation Start: 11/04/24 19:42 Freq: Status: Active Protocol: Document 11/04/24 19:42 WENDIE (Rec: 11/04/24 20:10 WENDIE [id number]) E-signed By Christophe Pearson, PT Outpatient Therapy Subjective History Subjective History Patient is a 29 year old male presenting to outpatient PT with reports of chronic LS pain with RLE radicular symptoms starting approx 8 years ago. Symptoms of insidious onset starting approx 8 years ago with most recent exacerbation starting approx 2 months ago. Patient reports most recent imaging indicates multiple disc bulges , though no reports on file. No other comorbidities to report. Chief Complaint Pain,Stiff,Paresthesia Symptom Type Ache,Throb,Sharp Symptoms Relieved By Rest/Positioning Symptoms Aggravated By Sitting,Standing,Bending/ Stooping,Physical Activity, Walking,Lifting Prior Functional Limitations None Current Functional Limitations Lifting,Housework,Desk Work/ Reading,Driving,Sleeping, Standing,Sitting,Recreation Activity,Walking,Bending/ Stooping Symptom Description Constant but Variable Level of pain today (0-10) 5 Pain scale - at its best (0-10) 3 Pain scale - at its worst (0-10) 6 Lumbopelvic Eval Posture Thoracic Spine Posture Standing Position Increased Kyphosis Lumbar Spine Posture Standing Position Decreased Lordosis Palapation tenderness right Lumbar/Sacral Palpation Findings Tenderness Lumbar/Sacral Palpation Overall Comment R SIJ/greater throchanter 3/4 Accessory Movement S1 right Range of Motion Lumbar Spine Active Flexion Range of 68 Motion (degrees) Lumbar Spine Active Extension Range of 11 Motion (degrees) Left Lumbar Spine Lateral Flexion Active 17 Range of Motion (degrees) Right Lumbar Spine Lateral Flexion 19 Active Range of Motion (degrees) Lumbar Spine ROM Limitations Soft Tissue Tightness Manual Muscle Test Bilateral Knee Extension Strength Grade 5 Normal Knee Flexion Strength Grade 5 Normal Hip Flexion Strength Grade 5 Normal Extensor Hallucis Longus Strength Grade 5 Normal Ankle Dorsiflexion Strength Grade 5 Normal Gastronemius/Soleus Strength Grade 5 Normal Altered Sensation Right LE Dermatome Level L5,S1 Comment Intermittent shooting pain. Special Tests Hip Lizzie Test Positive Left,Positive Right Hip Piriformis Test Positive Left,Positive Right Hip Bowstring (Cram) Test Positive Left,Positive Right Sciatic Nerve Tension Test Negative Left,Positive Left Minor Test Positive Sacroiliac Joint Compression Test Negative Left,Negative Right Sacroiliac Joint Distraction Test Negative Left,Negative Right Lumbar Long [place] Distraction Test/Manual Positive Traction Oswestry Index Section 1 Pain Intensity The pain comes and goes and is moderate Section 2 Personal Care (Washing,Dresing) my way of washing or dressing even though it causes some pain Section 3 Lifting lifting heavy weights off the floor, but I can manage light to medium Section 4 Walking I cannot walk more than 1/2 mile without increasing pain Section 5 Sitting Pain prevents me from sitting for more than 1/2 hour Section 6 Standing I cannot stand more than 1/2 hour without increasing pain Section 7 Sleeping I get pain in bed, but it does not prevent me from sleeping well Section 8 Social Life Pain has restricted my social life to my home Section 9 Traveling I get extra pain while traveling, but it does not compel me to seek al Section 10 Changing Degreee of Pain My pain is neither getting better or worse Score and Risk Level Oswestry Sc 26 Oswestry Risk Level Severe Disability Outpatient Therapy Assessment Impairments Problems/Impairmments Palpation Tenderness,Impaired Range of Motion,Impaired Strength,Impaired Walking, Impaired Standing,Impaired Sitting,Impaired Driving, Impaired Household Care, Impaired Recreational Activities,Impaired Work Activities,Impaired Desk/ Computer Activities,Subjective C/O Pain Prognosis Rehab Potential Good Clinical Impression Consistent with Diagnosis Yes Consistent with Possible L upslip of the innominant Short Term Goals Number of Weeks 2 Decrease Subjective C/O Pain Yes: 02/10 at worst 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 Number of Weeks 4-6 Decreased Palpation Tenderness Yes: 1/ Increase Range of Motion Yes: WNL Increase Ability to Walk Yes: 30 min without difficulty Increase Ability to Stand Yes Improve Ability For Household Care Yes Return to Recreational Activities Yes Improve Tolerance to Work Activities Yes Improve Oswestry Score Yes: mild disability Decrease Subjective C/O Pain Yes: 2/10 at worst Outpatient Therapy Plan of Care Treatment Plan May Include Therapeutic Exercise Including Home Yes Exercise Program Manual Therapy Techniques Yes Neuromuscular Re-education Yes Therapeutic Activities to Return to Yes Previous Functional/Work Level Gait Training Yes ADL/Self Care Education Yes Mechanical Traction Yes Dry Needling Yes Thermal Modalities Yes Electrical Stimulation Yes Ultrasound/Phonophoresis Yes Iontophoresis Yes Orthotics/Bracing/Splinting Yes Eval/Re-Eval Yes Frequency Times per week 2-3 Duration Number of Weeks 4-6 Addendums This patient is a candidate for social No or vocational rehab? Patient/Guardian verbally acknowledges Yes understanding of treatment program and consents to further treatment? Patient/Guardian verbally acknowledges Yes understanding of diagnosis, prognosis and goals for treatment? Eval Complexity PT Charges 08279 - Moderate Complexity Shoulder/Elbow Eval Shoulder Objective Measurements Elbow Objective Measurements PHYSICIAN CERTIFICATION: I certify the specified therapy services for Tomás Tate are required, authorized, and reviewed every 30 days.
== END 2024-12-01 23:59 | disposition home or self-care (01) ==
LOC: PT 15:00
PROVIDERS: Visit Provider Nurse Practitioner Family
DX: M54.41 Lumbago with sciatica, right side (principal); M54.16 Radiculopathy, lumbar region
CPT/HCPCS: 20561; 97014; 97110; 97163; 97530; G0283

== ENCOUNTER 2024-12-16 15:00 | Outpatient (RCR) | payer BC, SELFPAY | END 2024-12-16 23:59 | disposition home or self-care (01) | LOC: PT 15:00 | PROVIDERS: Visit Provider Nurse Practitioner Family | DX: M54.16 Radiculopathy, lumbar region (principal); M54.41 Lumbago with sciatica, right side | CPT/HCPCS: 20561; 97014; 97110; G0283 ==

== ENCOUNTER 2025-02-25 00:37 | Emergency (ER) | payer OTHER, SELFPAY ==
[2025-02-25 00:45] VITALS: BP 167/90; PULSE 96; RESP 18; TEMP 36.7; O2SAT 97; BMI 25.0
--- NOTE | 2025-02-25 00:47 | HMH.EDGENADL ---
Discharge Plan Disposition Patient Disposition: Home, Self-Care Condition: Good Prescriptions Prescriptions: New amoxicillin-pot clavulanate 875-125 mg tablet 1 tab PO BID 5 Days Qty: 10 0RF No Action ketoconazole 2 % cream 1 applic topical BID Qty: 30 0RF desvenlafaxine succinate [Pristiq] 100 mg tablet extended release 24 hr 100 mg PO DAILY Qty: 30 2RF Referrals Follow up/Referrals: Vini Crow MD [Primary Care Provider] - See instructions Activity Restrictions/Add. Instructions Additional Instructions/Restrictions: Please follow-up with your primary care provider. Please return to the emergency department if you develop any new or worsening symptoms or become concerned for your health. Please take antibiotics as prescribed for prophylaxis of infection. Clinical Impressions Clinical Impression: Dog bite Qualifiers: Encounter type: initial encounter Qualified Code(s): W54.0XXA - Bitten by dog, initial encounter Instructions Patient Instructions: Animal Bites Print Language Print Language: Nepali Discharge ED Provider: Justen Liu Adult [facility] General Chief complaint: Animal Bite Stated complaint: dog bite Time Seen by Provider: 02/25/25 00:40 Mode of Arrival: Ambulatory Source of Information: Patient Description of Symptoms (Recalled from ER Triage Doc. by RN): patient was bitten by a dog on the back of his left knee History of Present Illness HPI narrative: 29-year-old male without significant past medical history presents for dog bite to the back of his left knee. No significant bleeding. No palpable foreign body. 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 Reports pain. Has normal range of motion. Related Data Previous Rx's ?Medication ?Instructions ?Recorded ketoconazole 2 % topical cream 1 applic topical BID #30 grams 10/14/24 desvenlafaxine succinate 100 mg 100 mg PO DAILY #30 tabs 01/28/25 tablet,extended release 24 hr (Pristiq) amoxicillin 875 mg-potassium 1 tab PO BID 5 days #10 tabs 02/25/25 clavulanate 125 mg tablet Allergies Allergy/AdvReac Type Severity Reaction Status Date / Time No Known Allergies Allergy Verified 01/12/25 13:40 [facility] Disclaimer: The information contained in this section may have been updated after the patient was seen, as this information can be updated by other users. Medical History CRISTAL (acute kidney injury) Anxiety Depression Degenerative joint disease (DJD) of lumbar spine Lumbar disc herniation Lumbar radiculopathy Low back pain with sciatica Surgical History No pertinent past surgical history Family History Family/Other No significant family history Social History Smoking Status: Never smoker alcohol intake: former current occupational status: unemployed Travel in the last 8 weeks: None Other Medical History Have you received the Flu Vaccine for this season: No Have you received the Pneumonia Vaccine: No ROS Obtained: Yes All systems reviewed & no additional complaints except as documented Physical Exam General General appearance: alert and in no apparent distress Head Head exam: atraumatic and normocephalic Eye Eye exam: Present normal appearance, PERRL and EOMI ENT ENT exam: Present normal oropharynx and normal external ear exam Neck Neck exam: Present normal inspection and full ROM Chest Chest inspection: Present normal inspection and symmetric chest wall rise; Absent tenderness Respiratory Respiratory exam: Present normal lung sounds bilaterally; Absent respiratory distress Cardiovascular Cardiovascular exam: Present regular rate and normal rhythm Abdominal Exam Abdominal exam: Present soft; Absent distention, tenderness or guarding Extremities Exam Extremities exam: Present other (Multiple puncture wounds to the popliteal region of the left leg); Absent edema or joint swelling Back Exam Back exam: Present normal inspection; Absent tenderness Neurological Exam Neurological exam: Present alert and oriented X3; Absent motor sensory deficit Psychiatric Psychiatric exam: Present normal affect and normal mood Skin Skin exam: Present warm, dry and normal color Lymphatic Lymphatic Findings: no adenopathy Medical Decision Making Medical Records Medical records reviewed: Yes I reviewed the patient's medical records. Screening: Per USPSTF and CDC recommendations, given the prevalence of disease in our region, it is our hospital?s policy to screen for HIV and viral Hepatitis for all patients aged 18 and over and those with ongoing risk factors. Roni Inquiry Pt receiving controlled substance: No Roni was queried for this patient: No Vital Signs: 02/25/25 00:45 02/25/25 01:01 Temperature 98.1 F 98.1 F Temperature Source Oral Oral Pulse Rate 89 Pulse Rate [Right] 96 H Respiratory Rate 18 18 Blood Pressure 168/88 H Blood Pressure [Right Arm] 167/90 H Blood Pressure Mean [Right Arm] 115 Blood Pressure Source Automatic Cuff Blood Pressure Source [Right Arm] Automatic Cuff Blood Pressure Position Sitting 02 Sat by Pulse Oximetry 97 Oxygen Delivery Method Room Air Room Air Lab Data Lab results reviewed: Yes I reviewed the patient's lab results. Orders (Tests/Meds): ED MEDICATIONS Discontinued Medications Generic Name Dose Route Start Last Admin Trade Name Buffy PRN Reason Stop Dose Admin Amoxicillin/Clavulanate Potassium 1 each 02/25/25 00:48 02/25/25 00:52 Amoxicillin/Clavulanate Potassium 875/125mg Tablet PO 02/25/25 00:49 1 each ONCE ONE Administration Tetanus/Reduced Diphtheria/Acell Pertussis 0.5 ml 02/25/25 00:48 02/25/25 00:52 Tet/Diphth/Pert-Adult 0.5ml Syringe IM 02/25/25 00:49 0.5 ml .ONCE ONE Administration Medical Decision Narrative: 29-year-old male without significant past medical history presents for dog bite to the left leg. Hemostatic on arrival.. History was obtained via interactive discussion with patient. On arrival, patient is [afebrile, hemodynamically stable, satting appropriately, alert, oriented x4, GCS 15], moving all extremities spontaneously. Full physical exam performed and significant for puncture wounds to the left popliteal fossa Differential includes but is not limited to dog bite, foreign body, laceration, tetanus exposure. Patient was given Tdap and Augmentin. Wound was cleaned. No indication for suture repair. Discharged in stable condition with prescription for Augmentin for antibiotic prophylaxis of dog bite. Procedures Risk/Benefits of Procedure(s) Were Explained: Yes Critical Care Critical Care Time Critical Care Time: No
[2025-02-25] MEDS: AMOXICILLIN/CLAVULANATE POTASSIUM 875/125MG TABLET 1 EACH PO (00:52)
[2025-02-25] MEDS: TET/DIPHTH/PERT-ADULT 0.5ML SYRINGE 0.5 ML IM (00:52)
[2025-02-25 01:01] VITALS: BP 168/88; PULSE 89; RESP 18; TEMP 36.7; O2SAT 100
== END 2025-02-25 01:02 | disposition home or self-care (01) ==
PROVIDERS: Emergency Provider Emergency Medicine; PCP Family Medicine
DX: S81.052A Open bite, left knee, initial encounter (principal); W54.0XXA Bitten by dog, initial encounter; Z23 Encounter for immunization
CPT/HCPCS: 90471; 90715; 99283

== ENCOUNTER 2025-04-28 16:00 | Outpatient (RCR) | payer BC, SELFPAY ==
--- NOTE | 2025-04-06 17:03 | HMH.PTOPEV ---
PT Outpatient Evaluation Rehab PT Outpatient Evaluation Start: 04/06/25 15:55 Freq: Status: Active Protocol: Document 04/06/25 15:55 NARCISOANJELICA (Rec: 04/06/25 17:03 ZAN [id number]) E-signed By Tracee Mai, PT Outpatient Therapy Subjective History Subjective History Pt is a 30 y/o male who reports chronic R sided low back pain for ~1 year that radiates into the right buttocks region. Pt denies more distal LE symptoms, paresthesia or b/b dysfunction. Pt does report his right leg often shakes' and feels weak. Pt denies having recent imaging of his lumbar spine but reports previously he was told he has a bulging disc at L5. Pt reports he has had PT in the past with symptoms steadily improved but not abolished with dry needling. Pt reports pain continues to be aggravated by doing leg day at the gym, heavy lifting, prolonged sitting especially with his duty belt on, stair/incline climbing and bending forward. Pt reports he is still going to the gym but has not been running or doing leg day yet. Pt reports he is very cautious with bending forward and squats instead of bending at the waist to avoid R sided back/leg tightness. Pt denies further comorbidities to report. 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 Chief Complaint Pain Symptom Type Ache,Dull Symptoms Relieved By Rest/Positioning Current Functional Lifting,Standing,Squatting,Recreation Activity,Walking, Limitations Stairs Symptom Description Constant but Variable Pain scale - at its 3 best (0-10) Pain scale - at its 8 worst (0-10) Lumbopelvic Eval Posture Lumbar Spine Posture Increased Lordosis Standing Position Assistive device Assistive Devices None / NA Gait Observation General Gait Pattern No Deviations/Normal Observation Palapation tenderness right lumbar spinal Yes: L4-5, L5-S1 tenderness buttock tenderness Yes: piriformis, glute med/min, TFL Lumbar/Sacral Tenderness Palpation Findings Lumbar/Sacral 2/4 TTP Palpation Overall Comment Accessory Movement L-spine Vertebrae Central P/A [place] Accessory Movements that Elicit Symptoms L4 bilateral L5 bilateral S1 bilateral Range of Motion Lumbar Spine Active 70 Flexion Range of Motion (degrees) Lumbar Spine Active 15 Extension Range of Motion (degrees) Left Lumbar Spine 20 Lateral Flexion Active Range of Motion (degrees) Right Lumbar Spine 20 Lateral Flexion Active Range of Motion (degrees) Manual Muscle Test Right Knee Extension 4- Good- Strength Grade Knee Flexion 5 Normal Strength Grade Hip Flexion Strength 5 Normal Grade Hip Abduction 4+ Good+ Strength Grade Hip Adduction 4+ Good+ Strength Grade Hip Extension 4 Good Strength Grade Ankle Dorsiflexion 5 Normal Strength Grade DTR Rt Patellar 2+ Lt Patellar 2+ Rt Gastroc/Soleus 2+ Lt Gastroc/Soleus 2+ Altered Sensation Bilateral Comment equal and intact to light touch sensation bilaterally Special Tests Sciatic Nerve Positive Right Tension Test Unilateral Straight Positive Right Leg Raise (Lasegue) Test Oswestry Index Section 1 Pain Intensity The pain is mild and does not vary much Section 2 Personal Care ( my way of washing or dressing even though it causes Washing,Dresing) some pain Section 3 Lifting lifting heavy weights off the floor, but I can manage if they are Section 4 Walking I have some pain when walking but it does not increase with distance Section 5 Sitting Pain prevents me from sitting for more than one hour Section 6 Standing I cannot stand more than 1/2 hour without increasing pain Section 7 Sleeping I get pain in bed, but it does not prevent me from sleeping well Section 8 Social Life Pain has no significant effect on my social life apart from limiting Section 9 Traveling I get no pain when traveling Section 10 Changing Degreee of My pain seems to be getting better, but improvement is Pain slow Score and Risk Level Oswestry Sc 16 Oswestry Risk Level Moderate Disability Outpatient Therapy Assessment Impairments Problems/ Palpation Tenderness,Impaired Range of Motion,Impaired Impairmments Strength,Impaired Walking,Impaired Standing,Impaired Sitting,Impaired Lifting,Impaired Stair Climbing, Impaired Incline Stepping,Impaired Squatting,Impaired Recreational Activities,Impaired Running,Impaired Work Activities,Subjective C/O Pain,Impaired Self Care/Self Management Prognosis Rehab Potential Good Clinical Impression Consistent with Yes Diagnosis Short Term Goals Number of Weeks 3 Decrease Subjective Yes: Improve pain at worst to 6/10 to improve overall C/O Pain QOL Improve Self Care/ Yes Self Management Patient to be Ind w/ Yes HEP Halfway Goals Number of Weeks 6 Decreased Palpation Yes: 0-1/4 TTP of L4-5, L5-S1 Tenderness Increase Range of Yes: Improve lumbar AROM flexion to 90, ext to 20 Motion Increase Strength Yes: Improve hip/core strength to 5/5 grossly to assist with function Improve Ability to Yes: with pain 4/10 or less Bend Return to Yes: return to running/weight lifting with noonan 4/10 or Recreational less Activities Improve Tolerance to Yes: report ability to sit 30' with duty belt on p! 4/ Work Activities 10 or less Improve Oswestry Yes: Improve score to 11 or less to improve overall QOL Score Decrease Subjective Yes: Improve pain at worst to 4/10 to improve overall C/O Pain QOL Outpatient Therapy Plan of Care Treatment Plan May Include Therapeutic Exercise Yes Including Home Exercise Program Manual Therapy Yes Techniques Neuromuscular Re- Yes education Therapeutic Yes Activities to Return to Previous Functional/Work Level ADL/Self Care Yes Education Mechanical Traction Yes Dry Needling Yes Thermal Modalities Yes Electrical Yes Stimulation Ultrasound/ Yes Phonophoresis Iontophoresis Yes Massage Yes Eval/Re-Eval Yes Frequency Times per week 2 Duration Number of Weeks 4-6 Addendums This patient is a No candidate for social or vocational rehab ? Patient/Guardian Yes verbally acknowledges understanding of treatment program and consents to further treatment? Patient/Guardian Yes verbally acknowledges understanding of diagnosis, prognosis and goals for treatment? Eval Complexity PT Charges 19560 - Low Complexity Shoulder/Elbow Eval Shoulder Objective Measurements Elbow Objective Measurements PHYSICIAN CERTIFICATION: I certify the specified therapy services for Tomás Tate are required, authorized, and reviewed every 30 days.
== END 2025-04-28 23:59 | disposition home or self-care (01) ==
LOC: PT 16:00
PROVIDERS: Visit Provider Nurse Practitioner Family
DX: M54.51 Vertebrogenic low back pain (principal); M54.16 Radiculopathy, lumbar region
CPT/HCPCS: 20560; 20561; 97014; 97110; 97140; 97161; G0283

== ENCOUNTER 2025-06-21 13:53 | Outpatient (RCR) | payer BC, SELFPAY ==
--- NOTE | 2025-06-21 15:11 | HMH.PTOPEV ---
PT Outpatient Evaluation Rehab PT Outpatient Evaluation Start: 06/21/25 13:59 Freq: Status: Active Protocol: Document 06/21/25 14:00 ZAN (Rec: 06/21/25 15:11 ZAN [id number]) E-signed By Tracee Mai, PT Outpatient Therapy Subjective History Subjective History Pt is a 30 y/o male who reports chronic R sided low back pain for >1 year. Pt reports noted improvement in symptoms with a bout of PT 2 months ago although was unable to finish his plan of care due to scheduling issues. Pt reports history of radiating pain into the right buttocks which has since resolved with current symptoms of right sided low back pain only described as tension. Pt denies paresthesia, radiating pain or b/ b dysfunction. Pt reports his right leg previously felt weak but no longer does. Pt reports continued compliance with his home exercise program which he states continues to help with pain. Pt reports he made modifications at work including moving heavy items from his duty belt from the back to the side and he has also ordered a vest to place heavier items in. Pt states he has since returned to lifting legs at the gym without noted pain; however, is fearful of progressing to quickly and reinjuring his back. Pt reports he is also still very cautious with bending and lifting. Pt denies further comorbidities to report. 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 Chief Complaint Pain Symptom Type Ache,Dull,Other Current Functional Squatting,Recreation Activity Limitations Symptom Description Intermittent Level of pain today 0 (0-10) Pain scale - at its 0 best (0-10) Pain scale - at its 1 worst (0-10) Lumbopelvic Eval Posture Lumbar Spine Posture Increased Lordosis Standing Position Assistive device Assistive Devices None / NA Palapation tenderness bilateral lumbar spinal Yes: L4, L5, S1 tenderness paraspinal Yes: R lumbar PS tenderness buttock tenderness Yes: R glute med/min Lumbar/Sacral Tenderness Palpation Findings Lumbar/Sacral 1-2/4 TTP Palpation Overall Comment Accessory Movement L-spine Vertebrae Central P/A [place] Accessory Movements that Elicit Symptoms L4 bilateral L5 bilateral S1 bilateral Range of Motion Lumbar Spine Active 80 Flexion Range of Motion (degrees) Lumbar Spine Active 25 Extension Range of Motion (degrees) Left Lumbar Spine 25 Lateral Flexion Active Range of Motion (degrees) Right Lumbar Spine 25 Lateral Flexion Active Range of Motion (degrees) Manual Muscle Test Right Knee Extension 5 Normal Strength Grade Knee Flexion 5 Normal Strength Grade Hip Flexion Strength 4+ Good+ Grade Hip Abduction 4+ Good+ Strength Grade Hip Adduction 4+ Good+ Strength Grade Hip External 4 Good Rotation Strength Grade Hip Extension 4 Good Strength Grade Ankle Dorsiflexion 5 Normal Strength Grade DTR Rt Patellar 2+ Lt Patellar 2+ Altered Sensation Bilateral Comment equal and intact to light touch sensation bilaterally Special Tests Hip Jose D (GRACIELA) Negative Right Test Sciatic Nerve Negative Right Tension Test Unilateral Straight Negative Right Leg Raise (Lasegue) Test Oswestry Index Section 1 Pain Intensity The pain is mild and does not vary much Section 2 Personal Care ( change my way of washing or dressing in order to avoid Washing,Dresing) pain Section 3 Lifting Pain prevents me from lifting weights off the floor Section 4 Walking I cannot walk more than one mile wihtout increasing pain Section 5 Sitting I can sit in my favorite chair for as long as I like Section 6 Standing I cannot stand more than 1/2 hour without increasing pain Section 7 Sleeping I get pain in bed, but it does not prevent me from sleeping well Section 8 Social Life My social life is normal and gives me no extra pain Section 9 Traveling I get extra pain while traveling, but it does not compel me to seek al Section 10 Changing Degreee of My pain seems to be getting better, but improvement is Pain slow Score and Risk Level Oswestry Sc 14 Oswestry Risk Level Mild Disability Miscellaneous Dx PT Eval Objective Objective Special test: negative slump test Core strength: 4-/5 Outpatient Therapy Assessment Impairments Problems/ Palpation Tenderness,Impaired Strength,Impaired Lifting Impairmments ,Impaired Recreational Activities,Impaired Work Activities,Subjective C/O Pain,Impaired Self Care/Self Management Prognosis Rehab Potential Good Clinical Impression Consistent with Yes Diagnosis PT Patient Goals PT Patient Goals PT Short Term 2-3 weeks: Patient Goals 1. Pt to verbalize compliance with HEP to assist with progress. 2. Demonstrate proper lifting mechanics to prevent reinjury. PT Marketing Assistant Manager Patient 4-6 weeks: Goals 1. Improve TTP of L4-5, L5-S1 to 0-1/4 to assist with pain. 2. Improve core strength to 4-4+/5 grossly to prevent reinjury. 3. Improve hip strength to 4+-5/5 grossly to assist with function. 4. Demonstrate proper squat mechanics to prevent reinjury. 5. Improve KELLY score to 9 or less to improve overall QOL/function. Outpatient Therapy Plan of Care Treatment Plan May Include Therapeutic Exercise Yes Including Home Exercise Program Manual Therapy Yes Techniques Neuromuscular Re- Yes education Therapeutic Yes Activities to Return to Previous Functional/Work Level ADL/Self Care Yes Education Mechanical Traction Yes Dry Needling Yes Thermal Modalities Yes Electrical Yes Stimulation Ultrasound/ Yes Phonophoresis Iontophoresis Yes Massage Yes Eval/Re-Eval Yes Frequency Times per week 1-2 Duration Number of Weeks 4-6 Addendums This patient is a No candidate for social or vocational rehab ? Patient/Guardian Yes verbally acknowledges understanding of treatment program and consents to further treatment? Patient/Guardian Yes verbally acknowledges understanding of diagnosis, prognosis and goals for treatment? Eval Complexity PT Charges 94219 - Low Complexity Shoulder/Elbow Eval Shoulder Objective Measurements Elbow Objective Measurements PHYSICIAN CERTIFICATION: I certify the specified therapy services for Tomás Tate are required, authorized, and reviewed every 30 days.
== END 2025-06-21 23:59 | disposition home or self-care (01) ==
LOC: PT 13:53
PROVIDERS: PCP Nurse Practitioner Family; Visit Provider Nurse Practitioner Family
DX: G89.29 Other chronic pain (principal); M54.50 Low back pain, unspecified
CPT/HCPCS: 97161

== ENCOUNTER 2025-07-13 15:00 | Outpatient (RCR) | payer BC, SELFPAY | END 2025-07-13 23:59 | disposition home or self-care (01) | LOC: PT 15:00 | PROVIDERS: PCP Nurse Practitioner Family; Visit Provider Nurse Practitioner Family | DX: M54.41 Lumbago with sciatica, right side (principal); M47.26 Other spondylosis with radiculopathy, lumbar region; M51.26 Other intervertebral disc displacement, lumbar region | CPT/HCPCS: 20560; 97014; 97110; 97530; G0283 ==